=== PATIENT | female | born 1950 ===

== ENCOUNTER 2024-05-05 09:50 | Outpatient (RCR) | payer MEDICARE, BC, SELFPAY | END 2024-05-05 23:59 | disposition home or self-care (01) | LOC: RPT 09:50 | PROVIDERS: ATTENDING PHYSICIAN Obstetrics & Gynecology Female Pelvic Medicine and Reconstructive Surgery; PRIMARYCARE PHYSICIAN Internal Medicine | DX: N39.8 Other specified disorders of urinary system (principal); R35.0 Frequency of micturition; R39.15 Urgency of urination; R33.8 Other retention of urine; M62.89 Other specified disorders of muscle; Z73.6 Limitation of activities due to disability; M62.81 Muscle weakness (generalized); R27.8 Other lack of coordination; M62.838 Other muscle spasm | CPT/HCPCS: 97014; 97110; 97112; 97140; 97163; 97530 ==

== ENCOUNTER 2024-06-04 09:31 | Outpatient (RCR) | payer MEDICARE, BC, SELFPAY | END 2024-06-04 10:53 | disposition home or self-care (01) | LOC: RPT 09:31 | PROVIDERS: ATTENDING PHYSICIAN Obstetrics & Gynecology Female Pelvic Medicine and Reconstructive Surgery; PRIMARYCARE PHYSICIAN Internal Medicine | DX: N39.8 Other specified disorders of urinary system (principal); R35.0 Frequency of micturition; R39.15 Urgency of urination; R33.8 Other retention of urine; M62.89 Other specified disorders of muscle; Z73.6 Limitation of activities due to disability; M62.81 Muscle weakness (generalized); R27.8 Other lack of coordination; M62.838 Other muscle spasm; K59.09 Other constipation | CPT/HCPCS: 97014; 97112; 97140; 97530 ==